=== PATIENT | male | born 1960 | race African-American/Black ===

== ENCOUNTER 2017-04-30 17:19 | Emergency (ER) | payer MEDICAID ==
[~2017-04-30] VITALS: Ht 172.7 cm; Wt 118.0 kg
[2017-04-30] MEDS ORDERED: LISI40TA4 PO (17:30)
[2017-04-30] MEDS ORDERED: AMLO5TAB4 PO (17:30)
[2017-04-30] MEDS ORDERED: AMLO10TA80 PO (17:30)
[2017-04-30] MEDS ORDERED: NITROGLYCERIN 0.4MG TABLET SL SL PRN (21:15)
[2017-04-30] MEDS ORDERED: ASPIRIN 81MG TABLET PO ONE (21:15)
[2017-04-30 21:33] LABS: BASOPHILS % 1.1 % (0.0-2.0); EOSINOPHILS % 2.7 % (0.0-5.0); HEMATOCRIT. 43.5 % (42.0-52.0); HEMOGLOBIN. 14.7 g/dL (14.0-18.0); LYMPHOCYTES % 30.3 % (20.0-50.0); MEAN CORPUSCULAR HEMOGLOBIN 28.7 pg (28.0-32.0); MEAN CORPUSCULAR VOLUME 84.8 fL (80.0-94.0); MEAN PLATELET VOLUME 8.5 fl (7.4-10.4); MONOCYTES % 12.7 % (2.0-8.0); NEUTROPHILS % 53.2 % (40.0-76.0); PLATELET 202 x1000/uL (130-400); RED BLOOD CELL COUNT 5.13 mill/uL (4.7-6.1)
[2017-04-30 21:40] LABS: D-DIMER < 0.19 mg/L FEU (<0.50); PROTHROMBIN TIME 10.2 sec (9.4-11.6)
[2017-04-30 21:47] LABS: CARBON DIOXIDE 31 mEq/L (21-32); CHLORIDE 103 mEq/L (98-107); ETHANOL BLOOD < 10 mg/dL; TROPONIN I < 0.02 ng/mL (0.00-0.04)
[2017-05-01] MEDS ORDERED: DIPHENHYDRAMINE 50MG/ML VIAL IV PRN
[2017-05-01] MEDS ORDERED: ACETAMINOPHEN 325MG TABLET PO PRN
[2017-05-01] MEDS ORDERED: NA PHOS,M-B/NA PHOS,DI-BA ENEMA 118ML PR PRN
[2017-05-01] MEDS ORDERED: GUAIFENESIN 200MG/10ML SUGAR FREE UDC PO PRN
[2017-05-01] MEDS ORDERED: DOCUSATE SODIUM 100MG CAPSULE PO PRN
[2017-05-01] MEDS ORDERED: ONDANSETRON HCL 4MG/2ML VIAL IV PRN
[2017-05-01] MEDS ORDERED: HYDROCODONE/ACETAMINOPHEN 5/325MG TABLET PO PRN
[2017-05-01] MEDS ORDERED: MORPHINE SULFATE 2 MG/ML CPJ (NOT FOR IM USE) IV PRN
[2017-05-01] MEDS ORDERED: ENOXAPARIN 40MG/0.4ML SYR SUBCUT SCH
[2017-05-01] MEDS ORDERED: MAGNESIUM/ALUMINUM HYDROXIDE/SIMETHICONE 30ML UDC PO PRN
[2017-05-01] MEDS ORDERED: CLONIDINE 0.1MG TABLET PO PRN
[2017-05-01] MEDS ORDERED: ACETAMINOPHEN 650MG SUPP PR PRN
[2017-05-01] MEDS ORDERED: IPRATROPIUM/ALBUTEROL 0.5-3(2.5)MG/3ML NEB INH PRN
[2017-05-01] MEDS ORDERED: ACETAMINOPHEN 650MG/20.3ML UDC GT PRN
[2017-05-01 01:25] VITALS: BP 126/85
[2017-05-01] MEDS ORDERED: SODIUM CHLORIDE 0.9% INJ 3ML FLUSH IVF SCH (06:00)
== END 2017-05-01 02:08 | disposition left against medical advice (07) ==
LOC: ER 19:36 → EDBEDREQ 23:06 → EDBEDREQTM 23:06 → ER 05-01 02:08 → CANRESERV 05-01 04:18 → ENRESERV 05-01 04:18 → CANBEDREQ 05-01 21:02
DX: R07.9 Chest pain, unspecified (principal); I10 Essential (primary) hypertension; K21.9 Gastro-esophageal reflux disease without esophagitis
CPT/HCPCS: 36415; 71010; 80053; 83690; 83880; 84484; 85025; 85379; 85610; 93005; 99285; G0482; Z7610

== ENCOUNTER 2017-08-09 22:24 | Emergency (ER) | payer MEDICAID ==
[~2017-08-09] VITALS: Ht 172.7 cm; Wt 115.0 kg
[~2017-08-09 22:24] MED LIST: AMLO10TA80 PO; AMLO5TAB4 PO; LISI40TA4 PO
[2017-08-09 22:39] VITALS: BP 112/64
== END 2017-08-09 23:00 | disposition left against medical advice (07) ==
LOC: ER 22:24
DX: Z53.21 Procedure and treatment not carried out due to patient leaving prior to being seen by health care provider (principal)

== ENCOUNTER 2018-05-09 11:13 | Emergency (ER) | payer MEDICAID ==
[~2018-05-09] VITALS: Ht 172.7 cm; Wt 102.5 kg
[2018-05-09] MEDS ORDERED: ASPIRIN 81MG TABLET PO ONE (12:45)
[2018-05-09] MEDS ORDERED: NITROGLYCERIN 0.4MG TABLET SL SL PRN (12:45)
[2018-05-09 13:14] LABS: CHLORIDE 99 mEq/L (98-107); PROTHROMBIN TIME 10.1 sec (9.1-11.1)
[2018-05-09 13:21] LABS: BASOPHILS % 0.6 % (0.0-2.0); EOSINOPHILS % 0.9 % (0.0-5.0); HEMOGLOBIN. 14.6 g/dL (14.0-18.0); LYMPHOCYTES % 12.4 % (20.0-50.0); MEAN CORPUSCULAR HEMOGLOBIN 28.6 pg (28.0-32.0); MONOCYTES % 11.1 % (2.0-8.0); PLATELET 208 x1000/uL (130-400); RED BLOOD CELL COUNT 5.11 mill/uL (4.7-6.1); RED CELL DISTRIBUTION WIDTH 14.9 % (11.6-14.6)
[2018-05-09 14:45] VITALS: BP 121/81
== END 2018-05-09 15:04 | disposition home or self-care (01) ==
LOC: ER 12:31 → CANBEDREQ 20:36
DX: R07.89 Other chest pain (principal)
CPT/HCPCS: 36415; 71045; 83880; 84484; 87804; 99284

== ENCOUNTER 2019-08-27 19:26 | Emergency (ER) | payer MEDICAID ==
[~2019-08-27] VITALS: Ht 172.7 cm; Wt 113.0 kg
[2019-08-27 20:06] VITALS: BP 120/60
[2019-08-27 21:06] LABS: BASOPHILS % 0.6 % (0.0-2.0); EOSINOPHILS % 0.6 % (0.0-5.0); HEMATOCRIT. 41.3 % (42.0-52.0); HEMOGLOBIN. 13.7 g/dL (14.0-18.0); MEAN CORPUSCULAR HEMOGLOBIN 28.4 pg (28.0-32.0); MONOCYTES % 12.3 % (2.0-8.0); NEUTROPHILS % 68.5 % (40.0-76.0); PLATELET 191 x1000/uL (130-400); RED CELL DISTRIBUTION WIDTH 14.5 % (11.6-14.6)
[2019-08-27 21:08] LABS: CHLORIDE 106 mEq/L (98-107)
[2019-08-27] MEDS ORDERED: POTASSIUM CHLORIDE 20MEQ TABLET SR PO NR (21:45)
== END 2019-08-27 23:00 | disposition left against medical advice (07) ==
LOC: ER 19:26
DX: R07.89 Other chest pain (principal); Z53.29 Procedure and treatment not carried out because of patient's decision for other reasons; R50.9 Fever, unspecified; R05 Cough; I10 Essential (primary) hypertension
CPT/HCPCS: 36415; 71045; 80053; 83605; 83880; 84484; 85025; 87804; 93005; 99285

== ENCOUNTER → 2019-08-27 | Emergency (ER) | payer MEDICAID ==
[~2019-08-27] MED LIST changes: -AMLO5TAB4 PO
== END | disposition left against medical advice (07) ==
LOC: ER 19:20
DX: R07.89 Other chest pain (principal); R05 Cough; I10 Essential (primary) hypertension; Z79.899 Other long term (current) drug therapy
CPT/HCPCS: 99281

== ENCOUNTER 2020-01-03 16:57 | Inpatient (IN) | payer MEDICAID ==
[~2020-01-03] VITALS: Ht 167.6 cm; Wt 113.9 kg
[2020-01-03] MEDS ORDERED: MORPHINE SULFATE 4 MG/ML CPJ (NOT FOR IM USE) IV STA (17:20)
[2020-01-03] MEDS ORDERED: ONDANSETRON HCL 4MG/2ML INJ IV STA (17:20)
[2020-01-03] MEDS ORDERED: NITROGLYCERIN OINT 1GM/INCH UDPKT TD ONE (17:30)
[2020-01-03 17:59] LABS: EOSINOPHILS % 2.9 % (0.0-5.0); HEMOGLOBIN. 13.8 g/dL (14.0-18.0); LYMPHOCYTES % 38.7 % (20.0-50.0); MEAN CORPUSCULAR VOLUME 85.1 fL (80.0-94.0); MEAN PLATELET VOLUME 8.6 fl (7.4-10.4); MONOCYTES % 12.3 % (2.0-8.0); NEUTROPHILS % 45.1 % (40.0-76.0); PLATELET 185 x1000/uL (130-400); RED BLOOD CELL COUNT 4.94 mill/uL (4.7-6.1); RED CELL DISTRIBUTION WIDTH 15.5 % (11.6-14.6)
[2020-01-03 18:08] LABS: CHLORIDE 107 mEq/L (98-107)
[2020-01-03 20:00] VITALS: BP 101/71
[2020-01-03 20:26] VITALS: BP 101/57
[2020-01-03] MEDS ORDERED: AMLO10TA4 PO (20:59)
[2020-01-03] MEDS ORDERED: ASPI-1497 PO (20:59)
[2020-01-03] MEDS ORDERED: LORA5TAB8 MT (20:59)
[2020-01-03] MEDS ORDERED: BENA40TA66 PO (20:59)
[2020-01-03] MEDS ORDERED: ALD100 PO (20:59)
[2020-01-03] MEDS ORDERED: OMEP10CA5 PO (20:59)
[2020-01-03] MEDS ORDERED: CLONIDINE 0.1MG TABLET PO PRN (22:00)
[2020-01-03] MEDS ORDERED: ACETAMINOPHEN 325MG TABLET PO PRN (22:00)
[2020-01-04] VITALS (7 sets, daily range): BP systolic 111–169; BP diastolic 60–96
[2020-01-04 00:07] LABS: METHADONE URINE SCREEN NEGATIVE (NEGATIVE); OPIATES URINE SCREEN PRESUMTIVE POSITIVE (NEGATIVE)
[2020-01-04 00:08] LABS: *AMPHETAMINES SCREEN URINE NEGATIVE (NEGATIVE); *BARBITURATES SCREEN URINE NEGATIVE (NEGATIVE); *BENZODIAZEPINES SCREEN URINE NEGATIVE (NEGATIVE); *COCAINE SCREEN URINE NEGATIVE (NEGATIVE); CANNABINOID URINE SCREEN NEGATIVE (NEGATIVE); PHENCYCLIDINE URINE SCREEN NEGATIVE (NEGATIVE)
[2020-01-04 06:07] LABS: CHLORIDE 107 mEq/L (98-107)
[2020-01-04 06:13] LABS: LDL CHOLESTEROL 58 mg/dL (5-100)
[2020-01-04 06:15] LABS: CREATINE KINASE 148 IU/L (39-308); HDL CHOLESTEROL 30 mg/dL (40-59)
[2020-01-04 06:17] LABS: CREATINE KINASE MB FRACTION < 1.0 ng/mL (0.5-3.6)
[2020-01-04 06:57] LABS: HEMATOCRIT 39.2 % (42.0-52.0); HEMOGLOBIN 13.1 g/dL (14.0-18.0); MEAN CORPUSCULAR HEMOGLOBIN 28.3 pg (28.0-32.0); MEAN CORPUSCULAR VOLUME 84.9 fL (80.0-94.0); PLATELET 183 x1000/uL (130-400); RED BLOOD CELL COUNT 4.62 mill/uL (4.7-6.1); RED CELL DISTRIBUTION WIDTH 15.8 % (11.6-14.6)
[2020-01-04] MEDS: ASPIRIN 81MG TABLET PO SCH (08:21)
[2020-01-04 16:57] LABS: CREATINE KINASE 157 IU/L (39-308); CREATINE KINASE MB FRACTION < 1.0 ng/mL (0.5-3.6)
[2020-01-05] VITALS: BP 127/74
[2020-01-05 04:00] VITALS: BP 130/69
[2020-01-05 07:04] LABS: TOTAL IRON BINDING CAPACITY 239 ug/dL (250-450)
[2020-01-05 08:00] VITALS: BP 126/80
[2020-01-05] MEDS: ASPIRIN 81MG TABLET PO SCH (08:30)
[2020-01-05 12:00] VITALS: BP 137/68
== END 2020-01-05 16:05 | disposition home or self-care (01) | DRG 203 ==
LOC: ER 16:57 → 8WST 19:13 → EDBEDREQ 19:20 → ENRESERV 19:46
PROVIDERS: ADMIT Internal Medicine; ATTEND Internal Medicine
DX: M94.0 Chondrocostal junction syndrome [Tietze] (principal); D64.9 Anemia, unspecified; K21.9 Gastro-esophageal reflux disease without esophagitis; R07.89 Other chest pain; E66.9 Obesity, unspecified; E78.1 Pure hyperglyceridemia; F11.950 Opioid use, unspecified with opioid-induced psychotic disorder with delusions; I11.9 Hypertensive heart disease without heart failure; Z82.49 Family history of ischemic heart disease and other diseases of the circulatory system; Z68.41 Body mass index [BMI] 40.0-44.9, adult; Z79.899 Other long term (current) drug therapy; Z79.82 Long term (current) use of aspirin
CPT/HCPCS: 36415; 71045; 80048; 80053; 80061; 80305; 82550; 82553; 82728; 82962; 83540; 83550; 83880; 84484; 85025; 85027; 93005; 93306; 99285; J2270; J2405

== ENCOUNTER 2020-02-22 16:05 | Emergency (ER) | payer MEDICAID ==
[~2020-02-22] VITALS: Ht 172.7 cm; Wt 120.0 kg
[~2020-02-22 16:05] MED LIST changes: -AMLO10TA80 PO; +ASPI-1497 PO; -LISI40TA4 PO; +LORA5TAB8 MT; +OMEP10CA5 PO
[2020-02-22] MEDS ORDERED: KETOROLAC 60MG/2ML VIAL IM STA (17:36)
[2020-02-22 18:34] LABS: CLARITY URINE CLEAR (CLEAR); COLOR URINE YELLOW (YELLOW); KETONES URINE NEGATIVE (NEGATIVE); LEUKOCYTE ESTERASE URINE NEGATIVE (NEGATIVE); NITRITE URINE NEGATIVE (NEGATIVE); OCCULT BLOOD URINE NEGATIVE (NEGATIVE); PROTEIN URINE NEGATIVE (NEGATIVE); SPECIFIC GRAVITY URINE 1.043 (1.005-1.030)
[2020-02-22 19:12] VITALS: BP 132/78
== END 2020-02-22 19:13 | disposition home or self-care (01) ==
LOC: ER 16:27
DX: M54.5 Low back pain (principal); I10 Essential (primary) hypertension
CPT/HCPCS: 81003; 96372; 99283; J1885

== ENCOUNTER 2020-09-13 19:22 | Emergency (ER) | payer MEDICAID, OTHER ==
[~2020-09-13] VITALS: Ht 172.7 cm; Wt 119.0 kg
[2020-09-13 19:30] VITALS: BP 170/93
[2020-09-13 21:00] LABS: BASOPHILS % 0.6 % (0.0-2.0); EOSINOPHILS % 0.7 % (0.0-5.0); HEMATOCRIT. 42.3 % (42.0-52.0); HEMOGLOBIN. 14.2 g/dL (14.0-18.0); LYMPHOCYTES % 13.8 % (20.0-50.0); MEAN CORPUSCULAR HEMOGLOBIN 29.5 pg (28.0-32.0); MEAN CORPUSCULAR VOLUME 87.8 fL (80.0-94.0); MEAN PLATELET VOLUME 8.8 fl (7.4-10.4); MONOCYTES % 7.1 % (2.0-8.0); NEUTROPHILS % 77.8 % (40.0-76.0); PLATELET 183 x1000/uL (130-400); RED BLOOD CELL COUNT 4.82 mill/uL (4.7-6.1); RED CELL DISTRIBUTION WIDTH 13.8 % (11.6-14.6)
[2020-09-13 21:08] LABS: CHLORIDE 100 mEq/L (98-107)
== END 2020-09-14 01:01 | disposition home or self-care (01) ==
LOC: ER 19:22
DX: R07.9 Chest pain, unspecified (principal); I10 Essential (primary) hypertension; K21.9 Gastro-esophageal reflux disease without esophagitis; E66.9 Obesity, unspecified; Z68.39 Body mass index [BMI] 39.0-39.9, adult
CPT/HCPCS: 36415; 71045; 80053; 84484; 85025; 93005; 99285

== ENCOUNTER 2021-03-21 17:19 | Inpatient (IN) | payer MEDICAID, OTHER ==
[~2021-03-21] VITALS: Ht 172.7 cm; Wt 117.0 kg
[2021-03-21 23:07] LABS: BASOPHILS % 0.9 % (0.0-2.0); EOSINOPHILS % 2.7 % (0.0-5.0); HEMATOCRIT. 44.8 % (42.0-52.0); HEMOGLOBIN. 14.5 g/dL (14.0-18.0); LYMPHOCYTES % 34.4 % (20.0-50.0); MEAN CORPUSCULAR HEMOGLOBIN 28.5 pg (28.0-32.0); MEAN CORPUSCULAR VOLUME 87.7 fL (80.0-94.0); MEAN PLATELET VOLUME 9.2 fl (7.4-10.4); MONOCYTES % 12.3 % (2.0-8.0); NEUTROPHILS % 49.7 % (40.0-76.0); PLATELET 211 x1000/uL (130-400); RED BLOOD CELL COUNT 5.11 mill/uL (4.7-6.1); RED CELL DISTRIBUTION WIDTH 14.7 % (11.6-14.6)
[2021-03-21 23:14] LABS: CHLORIDE 106 mEq/L (98-107)
[2021-03-22 08:40] VITALS: BP 142/77
[2021-03-22] MEDS ORDERED: ONDANSETRON HCL 4MG/2ML INJ IV PRN (09:15)
[2021-03-22] MEDS ORDERED: IPRATROPIUM/ALBUTEROL 0.5-3(2.5)MG/3ML NEB HHN PRN (09:15)
[2021-03-22] MEDS ORDERED: DIPHENHYDRAMINE 50MG/ML VIAL IV PRN (09:15)
[2021-03-22] MEDS ORDERED: ACETAMINOPHEN 325MG TABLET PO PRN (09:15)
[2021-03-22 12:00] VITALS: BP 159/78
[2021-03-22] MEDS: LISINOPRIL 5MG TABLET PO SCH (13:59)
[2021-03-22 16:00] VITALS: BP 139/81
[2021-03-22] MEDS ORDERED: IOHEXOL-300 100 ML BOTTLE ONE (17:19)
[2021-03-22 20:00] VITALS: BP 137/68
[2021-03-23] VITALS: BP 125/78
[2021-03-23 04:00] VITALS: BP 134/73
[2021-03-23 07:31] LABS: BASOPHILS % 0.9 % (0.0-2.0); EOSINOPHILS % 2.9 % (0.0-5.0); HEMATOCRIT. 41.2 % (42.0-52.0); HEMOGLOBIN. 13.6 g/dL (14.0-18.0); LYMPHOCYTES % 30.7 % (20.0-50.0); MEAN CORPUSCULAR HEMOGLOBIN 28.5 pg (28.0-32.0); MEAN CORPUSCULAR VOLUME 86.4 fL (80.0-94.0); MEAN PLATELET VOLUME 8.8 fl (7.4-10.4); MONOCYTES % 8.9 % (2.0-8.0); NEUTROPHILS % 56.6 % (40.0-76.0); PLATELET 201 x1000/uL (130-400); RED BLOOD CELL COUNT 4.77 mill/uL (4.7-6.1); RED CELL DISTRIBUTION WIDTH 14.4 % (11.6-14.6)
[2021-03-23 07:52] LABS: CHLORIDE 108 mEq/L (98-107)
[2021-03-23 08:00] VITALS: BP 142/82
[2021-03-23 08:25] LABS: HDL CHOLESTEROL 38 mg/dL (40-59); LDL CHOLESTEROL 64 mg/dL (5-100)
[2021-03-23] MEDS: LISINOPRIL 5MG TABLET PO SCH (08:26)
[2021-03-23 11:45] VITALS: BP 142/82
[2021-03-23] MEDS ORDERED: LISI10TA26 PO (12:37)
[2021-03-24] MEDS ORDERED: LISINOPRIL 10MG TABLET PO SCH (09:00)
== END 2021-03-23 14:10 | disposition home or self-care (01) | DRG 203 ==
LOC: ER 17:19 → 8WST 03-22 00:41 → ENRESERV 03-22 07:39
PROVIDERS: ADMIT Internal Medicine; ATTEND Internal Medicine
DX: M94.0 Chondrocostal junction syndrome [Tietze] (principal); E66.9 Obesity, unspecified; I10 Essential (primary) hypertension; Z79.899 Other long term (current) drug therapy; Z82.49 Family history of ischemic heart disease and other diseases of the circulatory system; R00.1 Bradycardia, unspecified; Z68.39 Body mass index [BMI] 39.0-39.9, adult
CPT/HCPCS: 36415; 71045; 71260; 80053; 80061; 83880; 84443; 84484; 85025; 93005; 93306; 93970; 99285; Q9967

== ENCOUNTER 2021-04-27 09:22 | Emergency (ER) | payer OTHER ==
[~2021-04-27] VITALS: Ht 172.7 cm; Wt 118.0 kg
[~2021-04-27 09:22] MED LIST changes: +LISI10TA26 PO
[2021-04-27 09:29] VITALS: BP 139/64
[2021-04-27 10:44] LABS: CLARITY URINE CLEAR (CLEAR); COLOR URINE YELLOW (YELLOW); KETONES URINE TRACE (NEGATIVE); LEUKOCYTE ESTERASE URINE 2+ (NEGATIVE); NITRITE URINE NEGATIVE (NEGATIVE); OCCULT BLOOD URINE NEGATIVE (NEGATIVE); PH URINE 5.5 (4.5-8.0); PROTEIN URINE TRACE (NEGATIVE); SPECIFIC GRAVITY URINE 1.017 (1.005-1.030)
[2021-04-27] MEDS ORDERED: CEPH500C2 MT (11:15)
== END 2021-04-27 11:35 | disposition home or self-care (01) ==
LOC: ER 09:35
DX: N30.00 Acute cystitis without hematuria (principal); I10 Essential (primary) hypertension; Z79.899 Other long term (current) drug therapy
CPT/HCPCS: 81003; 87077; 87186; 99283

== ENCOUNTER 2023-04-14 15:48 | Emergency (ER) | payer MEDICAID, OTHER ==
[~2023-04-14] VITALS: Ht 172.7 cm; Wt 120.0 kg
[~2023-04-14 15:48] MED LIST changes: +CEPH500C2 MT
[2023-04-14 16:19] VITALS: BP 159/87; PULSE 58; RESP 16; TEMP 98.7; O2SAT 98
[2023-04-14] MEDS ORDERED: CETI10TA6 MT (21:40)
[2023-04-14] MEDS ORDERED: BENZ200C52 MT (21:40)
== END 2023-04-14 21:45 | disposition home or self-care (01) ==
LOC: ER 15:48
DX: J06.9 Acute upper respiratory infection, unspecified (principal); I10 Essential (primary) hypertension; Z20.822 Contact with and (suspected) exposure to COVID-19
CPT/HCPCS: 99284; 71045; 87426; 87804 ×2; C9803

== ENCOUNTER 2023-12-20 16:03 | Emergency (ER) | payer MEDICAID, OTHER ==
[~2023-12-20] VITALS: Ht 177.8 cm; Wt 123.0 kg
[~2023-12-20 16:03] MED LIST changes: +BENZ200C52 MT; +CETI10TA6 MT
[2023-12-20 16:07] VITALS: PULSE 87
[2023-12-20 16:12] VITALS: O2SAT 97
[2023-12-20] MEDS ORDERED: NAPR-1176 MT (17:29)
[2023-12-20] MEDS ORDERED: LIDO700A15 TP (17:29)
[2023-12-20 18:01] VITALS: BP 141/79; RESP 20; TEMP 97.7
[2023-12-20] MEDS: LIDOCAINE 5% PATCH TOP SCH (18:01)
[2023-12-20] MEDS: ACETAMINOPHEN 500MG TABLET PO ONE (18:01)
== END 2023-12-20 18:17 | disposition home or self-care (01) ==
LOC: ER 16:03
DX: M25.551 Pain in right hip (principal); I10 Essential (primary) hypertension; Z98.890 Other specified postprocedural states; Z79.899 Other long term (current) drug therapy
CPT/HCPCS: 73502; 99283

== ENCOUNTER 2024-08-10 18:50 | Emergency (ER) | payer MEDICAID ==
[~2024-08-10] VITALS: Ht 170.2 cm; Wt 75.0 kg
[~2024-08-10 18:50] MED LIST changes: +LIDO700A15 TP; +NAPR-1176 MT
[2024-08-10 18:53] VITALS: TEMP 36.6; O2SAT 99
[2024-08-10] MEDS: IBUPROFEN 600MG TABLET PO ONE (20:41)
[2024-08-10] MEDS: METHOCARBAMOL 500MG TABLET PO ONE (20:42)
[2024-08-10] MEDS ORDERED: IBUP-2029 MT (21:26)
[2024-08-10] MEDS ORDERED: METH-653 MT (21:26)
[2024-08-10 21:58] VITALS: BP 138/73; PULSE 56; RESP 16; O2SAT 98
== END 2024-08-10 21:59 | disposition home or self-care (01) ==
LOC: ER 18:50
DX: S13.4XXA Sprain of ligaments of cervical spine, initial encounter (principal); M50.30 Other cervical disc degeneration, unspecified cervical region; M47.812 Spondylosis without myelopathy or radiculopathy, cervical region; M17.11 Unilateral primary osteoarthritis, right knee; I10 Essential (primary) hypertension; F10.90 Alcohol use, unspecified, uncomplicated; M48.02 Spinal stenosis, cervical region; Z79.1 Long term (current) use of non-steroidal anti-inflammatories (NSAID); Z79.899 Other long term (current) drug therapy; X58.XXXA Exposure to other specified factors, initial encounter; Y93.89 Activity, other specified; Y92.89 Other specified places as the place of occurrence of the external cause; Y99.8 Other external cause status; Y90.9 Presence of alcohol in blood, level not specified
CPT/HCPCS: 73080; 73562; 99284